=== PATIENT | female | born 2000 | race Caucasian/White ===

== ENCOUNTER 2020-12-25 10:59 | Emergency (ER) | payer MEDICAID, SELFPAY ==
[2020-12-25 11:08] VITALS: BP 110/70; BP 110/77; PULSE 76; PULSE 82; RESP 18; TEMP 36.9; O2SAT 96; O2SAT 98; BMI 19.8
--- NOTE | 2020-12-25 11:16 | US_ITS ---
EXAMINATION: ULTRASOUND PELVIS COMPLETE CLINICAL INFORMATION: Vaginal bleeding COMPARISON: None TECHNIQUE: Transabdominal and transvaginal ultrasound pelvis is performed. FINDINGS: The uterus is anteverted and anteflexed measuring 8.7 cm in length, 4.3 cm in AP and 5.8 cm in transverse dimension. Uterus is homogeneous in echotexture without focal lesion. Endometrial thickness is 0.56 cm. The right ovary measures 2.1 x 1.5 x 1.4 cm and volume 2.3 mL. It appears unremarkable. The left ovary measures 3.9 x 2.6 2.1 cm and volume 11.2 mL. There is anechoic cyst measuring 2.1 x 1.8 x 1.9 cm. There is no free fluid in the cul-de-sac. US/US pelvic complete IMPRESSION: Small anechoic cyst left ovary. The right ovary and the uterus is unremarkable.
--- NOTE | 2020-12-25 11:16 | US_ITS ---
EXAMINATION: ULTRASOUND PELVIS COMPLETE CLINICAL INFORMATION: Vaginal bleeding COMPARISON: None TECHNIQUE: Transabdominal and transvaginal ultrasound pelvis is performed. FINDINGS: The uterus is anteverted and anteflexed measuring 8.7 cm in length, 4.3 cm in AP and 5.8 cm in transverse dimension. Uterus is homogeneous in echotexture without focal lesion. Endometrial thickness is 0.56 cm. The right ovary measures 2.1 x 1.5 x 1.4 cm and volume 2.3 mL. It appears unremarkable. The left ovary measures 3.9 x 2.6 2.1 cm and volume 11.2 mL. There is anechoic cyst measuring 2.1 x 1.8 x 1.9 cm. There is no free fluid in the cul-de-sac. US/US transvaginal IMPRESSION: Small anechoic cyst left ovary. The right ovary and the uterus is unremarkable.
[2020-12-25 11:17] VITALS: BP 95/56; PULSE 60
[2020-12-25 11:18] VITALS: BP 104/65; PULSE 80
[2020-12-25 11:19] VITALS: BP 103/68; PULSE 88
--- NOTE | 2020-12-25 11:19 | ED_ITS ---
HPI - General Adult General Chief complaint: Vaginal Bleeding Stated complaint: AB PAIN W/N&V,VAG BLEED,3MONTHS POST Time Seen by Provider: 12/25/20 11:16 History of Present Illness HPI narrative: 20-year-old female patient is 3 months with not significant , patient had normal spontaneous vaginal delivery, patient presented here today for increased vaginal bleed that has been continuous for the past 3 months, patient also complains of migraine headaches and lightheadedness with generalized weakness, patient complains of 3 days of nausea and vomiting with worsening of left-sided lower abdominal pain. Worsening of migraine headaches for the past 3 days. Patient also complained of hemorrhoid that bother the patient. With on and off bleeding. Related Data Allergies Allergy/AdvReac Type Severity Reaction Status Date / Time No Known Allergies Allergy Unverified 08/11/20 19:39 [No Known Allergies*] Review of Systems Review of Systems: All other systems are reviewed and are negative Constitutional: Reports as per HPI and Reports no additional constitutional complaints Eyes: Reports as per HPI and Reports no additional eye complaints Reports system reviewed and no additional complaints, except as documented Cardiovascular: Reports as per HPI and Reports no additional cardiovascular complaints Respiratory: Reports as per HPI and Reports no additional respiratory complaints Gastrointestinal: Reports as per HPI and Reports no additional gastrointestinal complaints Genitourinary: Reports no additional female genitourinary complaints Musculoskeletal: Reports no additional musculoskeletal complaints Skin/Breast: Reports system reviewed and no additional complaints, except as docu Psychiatric: Reports no additional psychiatric complaints Endocrine: Reports no additional endocrine complaints Hematologic/Lymphatic: Reports no additional hematologic/lymphatic complaints Allergic/Immunologic: Reports no additional allergic/immunologic complaints Reports system reviewed and no additional complaints, except as documented and Reports Abnormal speech present [facility] Past Medical History Medical History ADHD Asthma Depression Social History Social History Alcohol intake: never Smoking Status: Never smoker Use of substances other than those prescribed or required for medical reasons: No Advance Directives: No Advance Directives Information Provided: Yes Physical Exam Vital Signs: Vital Signs: Last Vital Signs Temp 98.4 F 12/25/20 11:08 Pulse 88 12/25/20 11:19 Resp 18 12/25/20 11:08 BP 103/68 12/25/20 11:19 Pulse Ox 98 12/25/20 11:08 Body Mass Index 19.8 Vital signs have been reviewed as normal and appeared to be correct. Blood pressure normal. Heart rate normal. Respiration rate normal. Temperature normal. Oxygen saturation normal. Appearance: Alert. Oriented X3. No acute distress. Head: Normal external exam. Normocephalic. Atraumatic. No Leigh signs noted. No raccoon eyes noted Eyes: PERRLA. EOMI. Conjunctiva and sclera normal. Eyelids normal. ENT: EAC normal. TM's Normal. Pharynx normal. Uvula midline. Moist mucous membra emir. No trismus noted. No drooling noted. No muffled voice noted. Neck: Normal inspection. Neck supple. FROM. No adenopathy. Thyroid Normal. No meningeal signs. No neck mass noted. CVS: Normal heart rate and rhythm. Heart sound normal. No murmurs noted. Pulses normal throughout. Respiratory: No respiratory distress. Painless inspiration. Breath sounds normal. No wheezes/rales/rhonchi noted. Chest nontender. No accessory muscle usage noted or decreased air movement noted. Abdomen: Soft and nontender. Bowel sounds normal in all 4 quadrants. No distention noted. No organomegaly noted. No visible injury noted. Pelvic exam: In the presence of female customer pricing manager in room pelvic exam was per formed, normal external inspection, there is blood in the vault with few blood clots, os is closed, no CMT tenderness, no adnexal mass. Rectal exam: Also was done in the presence of female customer pricing manager, good rectal tone, no masses felt, no fluctuation or abscess, no hemorrhoid seen externally, no hemorrhoid felt internally. No fissure is appreciated. Back: No CVA tenderness. Full range of motion noted. Skin: Skin warm and dry. Normal skin color. Normal skin turgor. No rashes/lesions/lacerations noted. Extremities: No lower extremity edema. Extremities exhibit normal range of motion. Extremities nontender. Neuro: Oriented X 3. No motor deficit. No sensory deficit. Reflexes normal. Course Course Course Narrative: Assessment and plan. 20-year-old female came in with vaginal bleed with 3 months . Patient is hemodynamically stable, hemoglobin is low but better than her ba seline normally she run at 9 units today's hemoglobin is 11 units. Patient was instructed to follow-up with OBGYN. Medical Decision Making Lab Data Lab results reviewed: Yes I reviewed the patient's lab results. Result diagrams: 12/25/20 11:33 12/25/20 11:33 Labs: Lab Results 12/25/20 12/25/20 12/25/20 Range/Units 11:33 11:33 11:33 WBC 7.4 (4.8-10.8) X10*3/uL RBC 4.28 (4.20-5.50) X10*6/uL Hgb 11.0 L (12.0-16.0) g/dl Hct 35.8 L (37-47) % MCV 83.6 (80-98) fL MCH 25.7 L (27.0-33.0) pg MCHC 30.7 L (31.0-35.0) g/dl RDW 15.3 (11.0-16.0) % Plt Count 285 (160-400) X10*3/uL MPV 10.9 (9.4-12.3) fL Immature Gran % (Auto) 0.1 (0.0-0.4) % Neut % (Auto) 50.1 (45-73) % Lymph % (Auto) 35.3 (20-40) % [place] % (Auto) 8.9 (2-11) % Eos % (Auto) 5.2 H (0-4) % Baso % (Auto) 0.4 (0-2) % Lymph # (Auto) 2.6 (1.2-4.9) X10*3/uL [place] # (Auto) 0.7 (0.1-1.2) X10*3/uL Eos # (Auto) 0.4 (0.0-0.4) X10*3/uL Baso # (Auto) 0.0 (0.0-0.2) X10*3/uL Abs Immat Gran (auto) 0.01 (0.00-0.03) X10*3/uL Absolute Neuts (auto) 3.7 (2.0-8.3) X10*3/uL Absolute Nucleated RBC 0.000 (0.0-0.012) X10*3/uL Nucleated RBC % (auto) 0.0 (0.0-0.2) /100WBC Sodium 142 (135-145) mmol/L Potassium 4.1 (3.3-5.1) mmol/L Chloride 110 H (96-108) mmol/L Carbon Dioxide 23 (22-29) mmol/L Anion Gap 13 (12-20) BUN 19 H (9-16) mg/dL Creatinine 0.73 (0.5-1.4) mg/dL Estim Creat Clear Calc 92.4 Estimated GFR > 60 Random Glucose 79 (60-115) mg/dL Calcium 8.8 (8.4-10.2) mg/dL Beta HCG, Quant < 2 mIU/mL COVID-19 ([facility]) Negative (Negative) COVID-19 Clin Com See Note Imaging Data Pelvic ultrasound: Radiologist's impression: Small anechoic cyst left ovary. The right ovary and the uterus is unremarkable. Discharge Plan Discharge Clinical Impression: Vaginal bleeding, Dysfunctional uterine bleeding Patient Disposition: Home, Self-Care Instructions: Dysfunctional Uterine Bleeding (ED) Additional Instructions: Follow-up with your OBGYN make an appointment this week. Referrals: Physician,None [Primary Care Provider] - 2 days
[2020-12-25] MEDS: 0.9 % Sodium Chloride 1,000 ML 999 ML IVCONT (11:34)
--- NOTE | 2020-12-25 11:35 | PC.NURSE ---
labs drawn, orthostats performed, ivf started per order, covid swab performed, pt aware we need a urine and will ring when able, will continue to monitor.
[2020-12-25 11:40] LABS: MANUAL DIFF FLAG NO
[2020-12-25 11:42] LABS: Basophils Percent Auto 0.4 % (0-2); Eosinophils Absolute Auto 0.4 X10*3/uL (0.0-0.4); Eosinophils Percent Auto 5.2 % (0-4); Hematocrit 35.8 % (37-47); Imm Gran Abs Auto 0.01 X10*3/uL (0.00-0.03); Imm Gran Pct Auto 0.1 % (0.0-0.4); Lymphocytes Absolute Auto 2.6 X10*3/uL (1.2-4.9); Lymphocytes Percent Auto 35.3 % (20-40); Mean Corpuscular HGB Conc 30.7 g/dl (31.0-35.0); Mean Corpuscular Hemoglobin 25.7 pg (27.0-33.0); Mean Corpuscular Volume 83.6 fL (80-98); Mean Platelet Volume 10.9 fL (9.4-12.3); Monocytes Absolute Auto 0.7 X10*3/uL (0.1-1.2); Monocytes Percent Auto 8.9 % (2-11); Neutrophils Absolute Auto 3.7 X10*3/uL (2.0-8.3); Neutrophils Percent Auto 50.1 % (45-73); Platelet Count 285 X10*3/uL (160-400); Red Blood Count 4.28 X10*6/uL (4.20-5.50); Red Cell Distribution Width 15.3 % (11.0-16.0); White Blood Count 7.4 X10*3/uL (4.8-10.8)
[2020-12-25 11:57] LABS: COVID-19 Test Negative (Negative)
[2020-12-25 12:11] LABS: Anion Gap 13 (12-20); Blood Urea Nitrogen 19 mg/dL (9-16); Calcium 8.8 mg/dL (8.4-10.2); Carbon Dioxide 23 mmol/L (22-29); Chloride 110 mmol/L (96-108); Creatinine Clr Calc Pharmacy 92.4; Estimated Glomerular Filt Rate > 60; Glucose Random 79 mg/dL (60-115); Potassium 4.1 mmol/L (3.3-5.1); Sodium 142 mmol/L (135-145)
[2020-12-25 12:19] LABS: HCG Quantitative < 2 mIU/mL
--- NOTE | 2020-12-25 13:16 | PC.NURSE ---
tech assisted provider doing an internal exam
== END 2020-12-25 13:48 | disposition home or self-care (01) ==
PROVIDERS: Emergency Provider Emergency Medicine
DX: N93.8 Other specified abnormal uterine and vaginal bleeding (principal); Z20.822 Contact with and (suspected) exposure to COVID-19; R51.9 Headache, unspecified; R11.2 Nausea with vomiting, unspecified
CPT/HCPCS: 36415; 76830; 76856; 80048; 84702; 85025; 87635; 96360; 99284

== ENCOUNTER 2021-08-01 22:45 | Emergency (ER) | payer MEDICARE, MEDICAID, SELFPAY ==
--- NOTE | 2021-08-01 22:50 | PC.NURSE ---
IN ROOM FOR EVAL. PT CHG INTO GOWN. LABS DRAWN TO LAB. PT MEDICATED PER EMAR FOR PAIN AND NAUSEA. PT ALERT, RESPIRATIONS EASY, N/L. SKIN W/D. WILL CONTINUE TO MONITOR PT.
[2021-08-01 22:55] VITALS: BP 106/69; BP 120/70; PULSE 80; PULSE 90; RESP 16; TEMP 37.1; O2SAT 100; O2SAT 99; BMI 23.6
[2021-08-01] MEDS: 0.9 % Sodium Chloride 1,000 ML 999 ML IVCONT (23:00)
[2021-08-01] MEDS: Famotidine/PF 20 MG/2 ML VIAL IVPUSH (23:04)
--- NOTE | 2021-08-01 23:46 | ED.NAVMDI ---
HPI - Nausea/Vomiting/Diarrhea General Chief complaint: Nausea/Vomiting/Diarrhea Stated complaint: abd pain Time Seen by Provider: 08/01/21 22:54 Source: patient Mode of arrival: ambulatory Limitations: no limitations History of Present Illness HPI Narrative: Patient with history of migraine been having headache for last 10 days getting worse with nausea and photosensitivity for last 24 hours patient has been vomiting vomited about 4 times with blood streaks also complaining of epigastric pain Related Data Previous Rx's Medication Instructions Recorded nbvyjnzwbl-nxsafnsyaqvdo-wbkjecgh 1 cap PO Q6H PRN #20 cap 08/02/21 50 mg-300 mg-40 mg capsule (Fioricet) ondansetron 4 mg disintegrating 4 mg PO Q6-8H PRN #7 tab 08/02/21 tablet Allergies Allergy/AdvReac Type Severity Reaction Status Date / Time No Known Allergies Allergy Unverified 08/11/20 19:39 [No Known Allergies*] Review of Systems Review of Systems: Yes all other systems are reviewed and are negative PMFSH Past Medical History Medical History ADHD Asthma Depression Social History Social History Alcohol intake: never Advance Directives: No Advance Directives Information Provided: No Physical Exam Vital Signs: Vital Signs: Last Vital Signs Temp 98.8 F 08/01/21 22:55 Pulse 80 08/02/21 00:08 Resp 16 08/02/21 00:08 BP 108/64 08/02/21 00:08 Pulse Ox 100 08/01/21 22:55 Body Mass Index 23.6 Appearance: Alert. Oriented X3. No acute distress. Anxious Eyes: PERRLA, No Nystagmus ENT: Pharynx normal. Oral Mucosa moist Neck: Normal inspection. Neck supple. CVS: Normal heart rate and rhythm. Pulses normal. Respiratory: No respiratory distress. Equal air entry bilateral, no wheezing/rales/rhonchi Abdomen: Soft and mild epigastric tenderness. Bowel sounds are present, no mass palpable, no CVA tenderness Skin: Skin warm and dry. Normal skin color. Normal skin turgor. Extremities: No lower extremity edema. No calf tenderness Neuro: Oriented X 3. MDM - Nausea/Vomiting/Diarrhea MDM Narrative Medical decision making narrative: Patient migraine headache with gastritis poor response to Imitrex will give her Benadryl Toradol IV fluids Pepcid , CBC is normal Lab Data Attestation: I reviewed the patient's lab results. Result diagrams: 08/02/21 00:16 08/02/21 00:16 Labs: Lab Results 08/02/21 08/02/21 08/02/21 Range/Units 00:16 00:22 00:22 WBC 7.6 (4.8-10.8) X10*3/uL RBC 4.39 (4.20-5.50) X10*6/uL Hgb 11.4 L (12.0-16.0) g/dl Hct 36.5 L (37-47) % MCV 83.1 (80-98) fL MCH 26.0 L (27.0-33.0) pg MCHC 31.2 (31.0-35.0) g/dl RDW 13.8 (11.0-16.0) % Plt Count 225 (160-400) X10*3/uL MPV 11.9 (9.4-12.3) fL Immature Gran % (Auto) 0.1 (0.0-0.4) % Neut % (Auto) 68.9 (45-73) % Lymph % (Auto) 22.4 (20-40) % [place] % (Auto) 7.8 (2-11) % Eos % (Auto) 0.5 (0-4) % Baso % (Auto) 0.3 (0-2) % Lymph # (Auto) 1.7 (1.2-4.9) X10*3/uL [place] # (Auto) 0.6 (0.1-1.2) X10*3/uL Eos # (Auto) 0.0 (0.0-0.4) X10*3/uL Baso # (Auto) 0.0 (0.0-0.2) X10*3/uL Abs Immat Gran (auto) 0.01 (0.00-0.03) X10*3/uL Absolute Neuts (auto) 5.2 (2.0-8.3) X10*3/uL Absolute Nucleated RBC 0.000 (0.0-0.012) X10*3/uL Nucleated RBC % (auto) 0.0 (0.0-0.2) /100WBC Urine Color OTHER Urine Appearance HAZY Urine pH 6.0 (5.0-8.0) Ur Specific [place] 1.025 (1.005-1.025) Urine Protein NEG (NEG-TRACE) MG/DL Urine Glucose (UA) NEG (NEG) MG/DL Urine Ketones NEG (NEG) MG/DL Urine Blood 2+ H (NEG) Urine Nitrite NEG (NEG) Ur Leukocyte Esterase 1+ H (NEG) Urine RBC 50-75 H (0) /HPF Urine WBC 1-4 (0-4) /HPF Ur Squamous Epith Cells 1+ /LPF Urine Bacteria 1+ /LPF Urine Test NEGATIVE (NEGATIVE) Discharge Plan Discharge Clinical Impression: Acute erosive gastritis Headache, migraine Qualifiers: Migraine type: without aura Status migrainosus presence: without status migrainosus Intractability: not intractable Qualified Code(s): G43.009 - Migraine without aura, not intractable, without status migrainosus Patient Disposition: Home, Self-Care Instructions: Gastritis (ED), Migraine Headache (ED) Additional Instructions: Rest at home take medication for migraine headache as prescribed. Nausea medicine As prescribed follow-up with PCP Prescriptions: New oerdwxfqlq-rxbjeiqedpakc-bvwu [Fioricet] 50-300-40 mg capsule 1 cap PO Q6H PRN (Reason: pain) Qty: 20 RF: 0 ondansetron 4 mg tablet,disintegrating 4 mg PO Q6-8H PRN (Reason: nausea and vomiting) Qty: 7 RF: 0
[2021-08-02] MEDS: diphenhydrAMINE HCL 50 MG/ML VIAL 25 MG IVPUSH (00:01)
[2021-08-02] MEDS: Magnesium Hydrox/Alum Hydrox 30 ML ORAL.SUSP PO (00:02)
[2021-08-02] MEDS: Ketorolac Tromethamine 15 MG/ML VIAL IVPUSH (00:02)
[2021-08-02 00:08] VITALS: BP 108/64; PULSE 80; RESP 16
--- NOTE | 2021-08-02 00:20 | PC.NURSE ---
PT UP TO RESTROOM FOR URINE SAMPLE.
[2021-08-02 00:28] LABS: MANUAL DIFF FLAG NO
[2021-08-02 00:31] LABS: Basophils Percent Auto 0.3 % (0-2); Eosinophils Percent Auto 0.5 % (0-4); Hematocrit 36.5 % (37-47); Hemoglobin 11.4 g/dl (12.0-16.0); Imm Gran Abs Auto 0.01 X10*3/uL (0.00-0.03); Imm Gran Pct Auto 0.1 % (0.0-0.4); Lymphocytes Absolute Auto 1.7 X10*3/uL (1.2-4.9); Lymphocytes Percent Auto 22.4 % (20-40); Mean Corpuscular HGB Conc 31.2 g/dl (31.0-35.0); Mean Corpuscular Volume 83.1 fL (80-98); Mean Platelet Volume 11.9 fL (9.4-12.3); Monocytes Absolute Auto 0.6 X10*3/uL (0.1-1.2); Monocytes Percent Auto 7.8 % (2-11); Neutrophils Absolute Auto 5.2 X10*3/uL (2.0-8.3); Neutrophils Percent Auto 68.9 % (45-73); Platelet Count 225 X10*3/uL (160-400); Red Blood Count 4.39 X10*6/uL (4.20-5.50); Red Cell Distribution Width 13.8 % (11.0-16.0); White Blood Count 7.6 X10*3/uL (4.8-10.8)
[2021-08-02 00:32] LABS: Glucose Urine UA NEG (NEG); Leukocyte Esterase Urine 1+ (NEG); Nitrite Urine NEG (NEG); Specific Gravity - Urine 1.025 (1.005-1.025); UACC Culture Trigger YES; Urine Blood 2+ (NEG); Urine Ketones NEG (NEG); Urine Protein NEG (NEG-TRACE)
[2021-08-02] MEDS: LORazepam 2 MG/ML VIAL 1 MG IVPUSH (00:32)
[2021-08-02 00:36] LABS: Color Urine OTHER
[2021-08-02 00:37] LABS: Appearance Urine HAZY
[2021-08-02 00:49] LABS: Bacteria Urine 1+ /LPF; RBC Urine 50-75 /HPF (0); Squamous Epithelial Cell Urine 1+ /LPF; UPreg QC Valid YES; Urine Pregnancy NEGATIVE (NEGATIVE)
--- NOTE | 2021-08-02 00:49 | PC.NURSE ---
PT AWAITING FOR FURTHER ORDER. PT DENIES NAUSEA AT THIS TIME. PT RESTING IN STRETCHER IN NAD. WILL CONTINUE TO MONITOR PT.
[2021-08-02 01:10] LABS: Alanine Aminotransferase 6 U/L (0-31); Albumin Level 3.9 g/dL (3.5-5.0); Alkaline Phosphatase 80 U/L (39-117); Anion Gap 12 (12-20); Aspartate Amino Transferase 13 U/L (5-31); Bilirubin Total 0.3 mg/dL (0.0-1.0); Blood Urea Nitrogen 12 mg/dL (9-16); Calcium 8.6 mg/dL (8.4-10.2); Carbon Dioxide 21 mmol/L (22-29); Chloride 112 mmol/L (96-108); Creatinine Clr Calc Pharmacy 86.5; Estimated Glomerular Filt Rate > 60; Glucose Random 97 mg/dL (60-115); Lipase 19 U/L (8-78); Potassium 3.9 mmol/L (3.3-5.1); Sodium 141 mmol/L (135-145); Total Protein 6.5 g/dL (6.5-8.0)
--- NOTE | 2021-08-02 02:34 | PC.NURSE ---
PT RESTING IN STRETCHER, WAKES TO VOICE. RESPIRATIONS EASY, N/L. SKIN W/D. WILL CONTINUE TO MONITOR PT. PT AWAITING FOR D/C INSTRUCTIONS.
== END 2021-08-02 05:03 | disposition home or self-care (01) ==
PROVIDERS: Emergency Provider Internal Medicine
DX: G43.009 Migraine without aura, not intractable, without status migrainosus (principal); K29.00 Acute gastritis without bleeding
CPT/HCPCS: 36415; 80053; 81001; 81025; 83690; 85025; 87086; 96361; 96372; 96374; 96375; 99283; 99284; J1200; J1885; J2060; J3030